=== PATIENT | male | born 1940 | race Caucasian/White ===

== ENCOUNTER 2022-02-27 06:47 | Day surgery (SDC) | payer MEDICARE, MEDICAID ==
[~2022-02-27] VITALS: Ht 170.2 cm; Wt 86.8 kg
[2022-02-27] MEDS ORDERED: SODIUM CHLORIDE 0.9% 1,000 ML IV ONE (07:00)
[2022-02-27 07:52] LABS: COVID AG,FIA SOURCE NASOPHARYNGEAL
[2022-02-27 08:15] LABS: EOSINOPHILS % (AUTO) 4.1 % (1.0-6.0); HEMATOCRIT 35.9 % (41-53); HEMOGLOBIN 11.8 g/dL (13.5-17.5); LYMPHOCYTES # (AUTO) 2.3 K/uL (1.0-4.8); LYMPHOCYTES % (AUTO) 33.3 % (22.0-44.0); MEAN CORPUSCULAR HEMOGLOBIN 29.8 pg (26.0-34.0); MEAN CORPUSCULAR HGB CONC 32.8 G/dL (31.0-37.0); MEAN CORPUSCULAR VOLUME 91 fL (80-100); MONOCYTES # (AUTO) 0.5 K/uL (0.1-1.0); MONOCYTES % (AUTO) 7.9 % (2.0-9.0); NEUTROPHILS # (AUTO) 3.7 K/uL (1.8-7.7); NEUTROPHILS % (AUTO) 53.7 % (40.0-70.0); PLATELET COUNT (AUTO) 150 K/uL (150-450); RED BLOOD CELL COUNT(AUTO) 3.94 MIL/uL (4.50-5.90); RED CELL DISTRIBUTION WIDTH 16.7 % (11.5-14.5)
[2022-02-27] MEDS ORDERED: ASPI-1450 PO (08:15)
[2022-02-27] MEDS ORDERED: ATOR40TA28 PO (08:15)
[2022-02-27] MEDS ORDERED: LISI-893 PO (08:15)
[2022-02-27] MEDS ORDERED: LIDOCAINE/PF 1% 30 ML VIAL ONE ×2 (08:15→08:31)
[2022-02-27] MEDS ORDERED: IOHEXOL 300 MG/ML 100 ML VIAL ONE ×2 (08:15→08:33)
[2022-02-27] MEDS ORDERED: FURO40 PO (08:15)
[2022-02-27] MEDS ORDERED: HEPARIN SODIUM 1000 UNITS/NS 1,000 ML ONE ×2 (08:15→08:32)
[2022-02-27] MEDS ORDERED: CYAN500T56 PO (08:15)
[2022-02-27] MEDS ORDERED: METO25 PO (08:15)
[2022-02-27] MEDS ORDERED: MULT-660 PO (08:15)
[2022-02-27] MEDS ORDERED: METF-1211 PO (08:15)
[2022-02-27] MEDS ORDERED: APIX5TAB PO (08:15)
[2022-02-27] MEDS ORDERED: ALLO-45 PO (08:15)
[2022-02-27] MEDS ORDERED: SODIUM BICARBONATE 50 MEQ/50 ML VIAL ONE ×2 (08:15→08:32)
[2022-02-27] MEDS ORDERED: FISH1CAP65 PO (08:15)
[2022-02-27] MEDS ORDERED: SODIUM CHLORIDE 0.9% 1,000 ML ONE (08:17)
[2022-02-27 08:26] LABS: CALCIUM, TOTAL 9.2 mg/dL (8.8-10.5); CREATININE 2.11 mg/dL (0.60-1.30); POTASSIUM 3.9 mmol/L (3.5-5.1)
[2022-02-27] MEDS ORDERED: FentaNYL CITRATE PF 100 MCG/2 ML VIAL ONE (08:29)
[2022-02-27] MEDS ORDERED: MIDAZOLAM HCL 2 MG/2 ML VIAL ONE (08:29)
[2022-02-27] MEDS ORDERED: HEPARIN SODIUM,PORCINE 1,000 UNITS/ML 10 ML VIAL ONE (08:31)
[2022-02-27 08:34] LABS: ALBUMIN 3.9 g/dL (3.4-5.0); BILIRUBIN,TOTAL 0.3 mg/dL (0.1-1.0); TOTAL PROTEIN, SERUM 7.9 g/dL (6.4-8.2)
[2022-02-27] MEDS ORDERED: VERAPAMIL HCL 2.5 MG/ML 2 ML VIAL ONE (08:47)
[2022-02-27] MEDS ORDERED: NITROGLYCERIN 50 MG/D5% WATER 250 ML ONE (08:47)
[2022-02-27 08:51] LABS: GLUCOMETER DEV NAME(LOC) SDS.; GLUCOSE,POINT OF CARE 117 MG/DL (70-110)
[2022-02-27 09:35] VITALS: BP 146/73
[2022-02-27] MEDS ORDERED: FentaNYL CITRATE PF 100 MCG/2 ML VIAL IVP ONE (10:15)
[2022-02-27] MEDS ORDERED: VERAPAMIL HCL 2.5 MG/ML 2 ML VIAL IARTER ONE (10:15)
[2022-02-27] MEDS ORDERED: NITROGLYCERIN/D5W 50 MG/250 ML IV BOTTLE IARTER ONE (10:15)
[2022-02-27] MEDS ORDERED: MIDAZOLAM HCL 2 MG/2 ML VIAL IVP ONE (10:15)
[2022-02-27] MEDS ORDERED: HEPARIN SODIUM 1000 UNITS/NS 1,000 ML IARTER ONE (10:15)
[2022-02-27] MEDS ORDERED: LIDOCAINE 1% 30 ML/SOD BICARB 8.4% 4 ML SQ ONE (10:15)
[2022-02-27] MEDS ORDERED: HEPARIN SODIUM,PORCINE 1,000 UNITS/ML 10 ML VIAL IVP ONE (10:15)
[2022-02-27 10:39] VITALS: BP 155/63
== END 2022-02-27 15:25 | disposition home or self-care (01) ==
LOC: CATHLAB 06:47
PROVIDERS: ATTEND Internal Medicine Cardiovascular Disease
DX: R94.39 Abnormal result of other cardiovascular function study (principal); I25.10 Atherosclerotic heart disease of native coronary artery without angina pectoris; I48.91 Unspecified atrial fibrillation; E11.9 Type 2 diabetes mellitus without complications; Z79.899 Other long term (current) drug therapy; Z98.890 Other specified postprocedural states; Z20.822 Contact with and (suspected) exposure to COVID-19
CPT/HCPCS: 93458; 80053; 82962; 85025; 85610; 85730; 36415; 93005; 87426; J3010; J1644 ×2; J3490 ×4; J2250; J7030; Q9967; C9803